=== PATIENT | male | born 1980 | race African-American/Black ===

== ENCOUNTER 2018-06-10 04:05 | Emergency (ER) | payer MEDICARE ==
[~2018-06-10] VITALS: Ht 185.4 cm; Wt 61.2 kg
--- NOTE | 2018-06-10 04:07 | NUR ---
PT TAKEN TO BED 9
[2018-06-10 04:11] VITALS: BP 125/83
--- NOTE | 2018-06-10 04:15 | NUR ---
PATIENT IS A 38 Y/O MALE WHO PRESENTS TO THE ED C/O RECTAL PAIN/ABD PAIN. PT STATES THAT HE HAS CROHN'S DISEASE AND HAD IS NOW EXPERIENCING RECTAL AND L SIDE ABD PAIN. PT REPORTS 10/10 ACHING LOWER LEFT ABD PAIN AND RECTAL PAIN. PT DENIES CP, SOB, N/V/D. PT AWAKE AND ALERT, RR EVEN/UNLABORED. PT REPOSITIONED FOR COMFORT, BED IN LOWEST POSITION. ER MD DR. PERALTA NOTIFIED. WILL CONTINUE TO MONITOR.
--- NOTE | 2018-06-10 04:29 | NUR ---
Dr. Rapp evaluating patient at bedside.
[2018-06-10] MEDS ORDERED: NACL 0.9% 1,000 ML IV ONE (04:51)
[2018-06-10] MEDS ORDERED: ONDANSETRON 4 MG/2 ML VIAL IVP ONE (04:55)
[2018-06-10] MEDS ORDERED: MORPHINE SULFATE 4 MG/ML SYR IVP ONE (04:55)
[2018-06-10] MEDS ORDERED: KETOROLAC 30 MG/ML VIAL IVP ONE (05:05)
--- NOTE | 2018-06-10 05:10 | NUR ---
PATIENT UNABLE TO PRODUCE URINE AT THIS TIME. ER MD NOTIFIED.
[2018-06-10 05:20] LABS: MEAN CORPUSCULAR HEMOGLOBIN 21 pg (27-31); PLATELET COUNT (AUTO) 189 K/uL (140-450); WHITE BLOOD COUNT (AUTO) 8.5 K/uL (4.8-10.8)
[2018-06-10 05:40] LABS: HEMATOCRIT 35.3 % (36-52); HEMOGLOBIN 11.3 g/dL (12.0-18.0); MEAN CORPUSCULAR HGB CONC 32 g/dL (33-37); MEAN CORPUSCULAR VOLUME 65.1 fL (80-94); RED BLOOD CELL COUNT(AUTO) 5.42 MIL/uL (4.20-6.10); RED CELL DISTRIBUTION WIDTH 28.3 % (11.6-13.7)
[2018-06-10 05:41] LABS: ALBUMIN 2.9 g/dL (3.4-5.0); ANION GAP 8.8 (8-16); CARBON DIOXIDE 27.4 mmol/L (21-32); POTASSIUM 3.2 mmol/L (3.5-5.1); TOTAL BILIRUBIN 0.4 mg/dL (0.0-1.0)
[2018-06-10] MEDS ORDERED: POTASSIUM CHLORIDE 10 MEQ TABER PO ONE (05:55)
[2018-06-10 05:59] LABS: EOSINOPHILS % (MANUAL) 1 % (0-4); LYMPHOCYTES % (MANUAL) 10 % (20-46); MONOCYTES % (MANUAL) 9 % (5-12)
--- NOTE | 2018-06-10 06:24 | NUR ---
Patient discharged with v/s stable. Written and verbal after care instructions given and explained. Patient alert, oriented and verbalized understanding of instructions. Ambulatory with steady gait. All questions addressed prior to discharge. ID band removed. Patient advised to follow up with PMD. Rx of ACETAMINOPHEN given. Patient educated on indication of medication including possible reaction and side effects. Opportunity to ask questions provided and answered. IV removed, catheter intact and site benign. Applied folded 4x4 gauze and tape to stop bleeding.
[2018-06-10 06:27] VITALS: BP 121/84
== END 2018-06-10 06:24 | disposition home or self-care (01) ==
LOC: MED 04:05
DX: R10.9 Unspecified abdominal pain (principal)
CPT/HCPCS: 36415; 80053; 83690; 85025; 99284; G0482; J2270; J2405